=== PATIENT | male | born 1990 | race Caucasian/White ===

== ENCOUNTER 2022-07-25 13:45 | Outpatient (CLI) | payer OTHER ==
--- NOTE | 2022-07-26 09:17 | MRI Report ---
PROCEDURE: Ankle LT W/O INDICATIONS: PAIN IN LEFT ANKLE AND KNEE TECHNIQUE: Noncontrast Magnetic Resonance Imaging (MRI) of the ankle/hindfoot was performed utilizing the follow ing sequences: sagittal T1 spin echo, sagittal STIR, axial PD fast spin echo, axial T2 fast spin echo with fat saturation, coronal T2 spin echo with fat saturation, and coronal PD fast spin echo with fa t saturation. COMPARISON: None. FINDINGS: Image quality: Excellent. Bones and joints: No acute trabecular bone injury or fracture. No hindfoot coalition. No osteochondral defect is seen a t the talar dome. Mild degenerative changes of the mortise joint including inferior osteophytes that could contribute to anterior osseous impingement. Mild dorsal spurring at the talonavicular joint. Medial structures: The deltoid ligament and the spring ligament are intact. The posterior tibialis, flexor digitorum floyd jacob, and flexor hallucis longus tendons are intact. The posterior tibial neurovascular bundle appears normal within the tarsal tunnel, without extrinsic mass effect. Lateral structures: The anterior and posterior distal tibiofibular ligaments are intact. The anterior talofibular ligamen t is not well visualized and is likely completely torn. Thickening of the calcaneofibular ligament is most likely secondary to a remote prior moderate grade sprain. The posterior talofibular ligament re jing intact. The peroneus longus and peroneus brevis tendons demonstrate mild tenosynovitis. The sin us tarsi demonstrates normal fatty signal. Anterior structures: The tibialis anterior, extensor hallucis longus, and extensor digitorum longus tendons appear intact. Posterior and plantar structures: The Achilles tendon is intact. The medial and lateral bands of the plantar fascia are within normal l imits. No disproportionate atrophy of the abductor digiti minimi muscle. IMPRESSION: 1.Chronic complete tearing of the anterior talofibular ligament. Remote prior grade 2 sprain of the c alcaneofibular ligament. 2.Mild peroneus brevis and longus tenosynovitis. 3.Mild degenerative changes at the mortise joint with anterior osteophyte formation that could contri bute to anterior osseous impingement. Reviewed by: Aden Boswell MD on 07/26/2022 9:15 AM PDT Approved by: Aden Boswell MD on 07/26/2022 9:15 AM PDT Station ID: [id number]
--- NOTE | 2022-07-26 15:22 | MRI Report ---
PROCEDURE: Knee LT W/O INDICATIONS: PAIN IN LEFT KNEE TECHNIQUE: Noncontrast sagittal PD fast spin echo and T2 fast spin echo with fat saturation, sagittal 3-D gradie nt sequence with fat saturation; coronal T1 spin echo and PD fast spin echo with fat saturation, and axial PD fast spin echo with fat saturation through the knee. COMPARISON: None. FINDINGS: Image quality: Excellent. Menisci: The medial and lateral menisci demonstrate normal morphology and internal signal. The meni scal root ligaments appear intact. Cruciate ligaments: The anterior and posterior cruciate ligaments appear intact. Medial structures: The medial collateral ligament appears intact. The semimembranosus tendon insert ions and meniscocapsular junction appear intact. Visualized portions of the pes anserinus tendons ap pear normal. No abnormal bursal fluid. Lateral structures: The lateral collateral ligament, long and short heads of the biceps femoris tend on appear intact. The popliteus tendon appears normal. Iliotibial band appears normal. Anterior structures: The quadriceps tendon is intact. Mild thickening and hyperintense signal distal ly in quadriceps tendon at the patellar insertion, consistent with mild tendinitis. Patellar tendon is wavy and kinked distally. There is edema in patella tendon insertion to the tibial tubercle. Patellar alignment is normal. No femoral trochlear dysplasia or ventral trochlear promine nce. There is edema in the superior last aspect of the infrapatellar fat pad. Bones and cartilage: There is an old patellar fracture or bipartite patella. There is fragmentation of tibial tubercle. Edema is seen in distal patellar tendon at the tibial insertion. The findings ar e compatible with [place]-Schlatter disease. There is chondromalacia patella with cartilage thinning and fibrillation in the inferior aspect of th e lateral facet of patella. Joint space: There is trace knee joint effusion. No Padgett's cyst. Normal appearing synovial plicae are incidentally noted. IMPRESSION: 1. 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 2. Old nondisplaced patellar fracture versus bipartite patella. 3. Edema in the superior last aspect of the infrapatellar fat pad suggesting infrapatellar fat imping ement. 4. 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 5. Low-grade quadriceps tendinitis. Reviewed by: Tanya Ortega MD on 07/26/2022 3:21 PM PDT Approved by: Tanya Ortega MD on 07/26/2022 3:21 PM PDT Station ID: [id number]
== END 2022-07-25 13:46 | disposition home or self-care (01) ==
LOC: DI 13:45
DX: M92.522 Juvenile osteochondrosis of tibia tubercle, left leg (principal); R60.0 Localized edema; M22.42 Chondromalacia patellae, left knee; M76.892 Other specified enthesopathies of left lower limb, excluding foot; S93.492A Sprain of other ligament of left ankle, initial encounter; Z87.828 Personal history of other (healed) physical injury and trauma; M65.9 Synovitis and tenosynovitis, unspecified; M19.072 Primary osteoarthritis, left ankle and foot

== ENCOUNTER 2024-06-28 21:20 | Emergency (ER) | payer OTHER ==
[2024-06-28 21:38] LABS: BASOPHILS # (AUTO) 0.1 10^3/uL (0.0-0.1); BASOPHILS % (AUTO) 0.8 %; EOSINOPHILS # (AUTO) 0.2 10^3/uL (0.0-0.7); HCT - HEMATOCRIT 44.6 % (42.0-52.0); HGB - HEMOGLOBIN 15.4 g/dL (14.0-18.0); LYMPHOCYTES # (AUTO) 2.9 10^3/uL (1.5-3.5); LYMPHOCYTES % (AUTO) 39.5 %; MEAN CORPUSCULAR HEMOGLOBIN 32.2 pg (27.0-31.0); MEAN CORPUSCULAR HGB CONC 34.5 g/dL (32.0-36.0); MEAN CORPUSCULAR VOLUME 93.3 fL (80.0-94.0); MEAN PLATELET VOLUME 10.2 fL (7.4-11.4); MONOCYTES # (AUTO) 0.6 10^3/uL (0.0-1.0); MONOCYTES % (AUTO) 8.6 %; NEUTROPHILS # (AUTO) 3.5 10^3/uL (1.5-6.6); PLT - PLATELET COUNT 229 10^3/uL (130-450); RED BLOOD COUNT 4.78 10^6/uL (4.70-6.10); RED CELL DISTRIBUTION WIDTH 12.2 % (12.0-15.0); WHITE BLOOD COUNT 7.3 x10^3/uL (4.8-10.8)
[2024-06-28 21:39] LABS: BILIRUBIN,URINE NEGATIVE (NEGATIVE); GLUCOSE, URINE (UA) NEGATIVE (NEGATIVE); KETONES,URINE (UA) TRACE mg/dL (NEGATIVE); LEUKOCYTE ESTERASE, URINE NEGATIVE (NEGATIVE); NITRITE,URINE NEGATIVE (NEGATIVE); OCCULT BLOOD,URINE NEGATIVE (NEGATIVE); PH,URINE 6.5 PH (5.0-7.5); PROTEIN,URINE NEGATIVE (NEGATIVE); UROBILINOGEN,URINE 0.2 (NORMAL) E.U./dL (NORMAL)
[2024-06-28 21:41] LABS: CLARITY,URINE CLEAR (CLEAR)
[2024-06-28 21:51] LABS: ALBUMIN 4.3 g/dL (3.2-5.5); ALBUMIN/GLOBULIN RATIO 1.6 (1.0-2.2); BILIRUBIN,TOTAL 0.4 mg/dL (0.2-1.0); CALCIUM 9.3 mg/dL (8.5-10.3); CREATININE 0.9 mg/dL (0.6-1.3)
--- NOTE | 2024-06-28 22:12 | ED Physician Documentation ---
PD HPI ABD PAIN - Stated complaint Stated Complaint: R SIDE ABD PX - Chief complaint Chief Complaint: Abd Pain - History obtained from History obtained from: Patient - Additional information Additional information: HPI from patient. Patient complains of sudden onset of right upper quadrant and epigastric pain that radiates around the right flank to his back. Denies nausea, vomiting. Onset was while seated in car. Pain waxes and wanes without any apparent exacerbating or ameliorating factors. Denies history of similar symptoms. No past abdominal surgical history. Review of Systems Constitutional: reports: Reviewed and negative Cardiac: reports: Reviewed and negative Respiratory: reports: Reviewed and negative GI: reports: Abdominal Pain, Nausea, Vomiting. denies: Abdominal Swelling, Constipation, Diarrhea : denies: Dysuria, Frequency, Hematuria PD PAST MEDICAL HISTORY - Past Medical History Past Medical History: No Cardiovascular: None Respiratory: None Neuro: None Endocrine/Autoimmune: None GI: None : None HEENT: None Psych: None Musculoskeletal: None Derm: None - Past Surgical History Past Surgical History: No - Present Medications Home Medications: Ambulatory Orders Medication Instructions Recorded Confirmed HYDROcod/ACETAM 5/325 [[place] 5/325] 1 - 2 tablet PO Q6H PRN #14 tablet 06/28/24 Ondansetron Odt [Zofran Odt] 4 mg TL Q6H PRN #10 tablet 06/28/24 - Allergies Allergies/Adverse Reactions: Allergies Allergy/AdvReac Type Severity Reaction Status Date / Time No Known Drug Allergies Allergy Verified 06/28/24 21:22 - Social History Does the pt smoke?: No Smoking Status: Never smoker Does the pt drink ETOH?: No Does the pt have substance abuse?: No - Immunizations Immunizations are current?: Yes - POLST Patient has POLST: No PD ED PE NORMAL - Vitals Vital signs reviewed: Yes - General General: Alert and oriented X 3, Well developed/nourished, Other (appears to be in moderate painful distress ) - HEENT HEENT: Moist mucous membranes - Cardiac Cardiac: RRR, No murmur - Respiratory Respiratory: No respiratory distress, Clear bilaterally - Abdomen Abdomen: Normal bowel sounds, Soft, Non tender, Non distended - Back Back: No CVA TTP - Derm Derm: Normal color, Warm and dry, No rash Results - Vitals Vitals: Oxygen O2 Source Room air - Labs Labs: Laboratory Tests 06/28/24 06/28/24 06/28/24 21:28 21:33 21:33 WBC 7.3 RBC 4.78 Hgb 15.4 Hct 44.6 MCV 93.3 MCH 32.2 H MCHC 34.5 RDW 12.2 Plt Count 229 MPV 10.2 Neut # (Auto) 3.5 Lymph # (Auto) 2.9 Williamson # (Auto) 0.6 Eos # (Auto) 0.2 Baso # (Auto) 0.1 Absolute Nucleated RBC 0.00 Nucleated RBC % 0.0 Sodium 139 Potassium 4.0 Chloride 105 Carbon Dioxide 29 Anion Gap 5.0 L BUN 17 Creatinine 0.9 Estimated GFR (MDRD) 97 Glucose 65 L Calcium 9.3 Total Bilirubin 0.4 AST 19 ALT 22 Alkaline Phosphatase 34 L Total Protein 7.0 Albumin 4.3 Globulin 2.7 Albumin/Globulin Ratio 1.6 Lipase 42 Urine Color YELLOW Urine Clarity CLEAR Urine pH 6.5 Ur Specific [place] 1.025 Urine Protein NEGATIVE Urine Glucose (UA) NEGATIVE Urine Ketones TRACE Urine Occult Blood NEGATIVE Urine Nitrite NEGATIVE Urine Bilirubin NEGATIVE Urine Urobilinogen 0.2 (NORMAL) Ur Leukocyte Esterase NEGATIVE Ur Microscopic Review NOT INDICATED Urine Culture Comments NOT INDICATED PD Medical Decision Making - ED course Complexity details: reviewed results, re-evaluated patient, considered differential, d/w patient ED course: No concerning or diagnostic findings on blood test, urinalysis. The CBC is normal (with insignificant exception of elevated MCH). Normal LFTs, lipase. US tech is not on duty at this time. I do not find evidence of gallstones on my bedside US although I also am not confidently visualizing the gallbladder on this exam. He is given 1 mg IV Dilaudid along with 30 mg IV Toradol, and he reports good relief of symptoms with these interventions. Results discussed with patient, return precautions are reviewed. Cause of symptoms not apparent this time. Given his description and of symptoms and location (right upper quadrant with radiation around the right flank to right paralumbar region), biliary colic remains strongly suspect and I advised him to seek follow-up with his primary care provider as soon as can be arranged for reevaluation. Should the symptoms persist or recur, he would likely benefit from outpatient right upper quadrant ultrasound. Prescriptions for Vicodin and ondansetron are electronically submitted to patient's pharmacy of choice. Departure - Departure Disposition: 01 Home, Self Care Clinical Impression: Abdominal pain Qualifiers: Abdominal location: right upper quadrant Qualified Code(s): R10.11 - Right upper quadrant pain Condition: Good Instructions: ED Abdominal Pain Unkn Cause Male Follow-Up: [facility] Miltonaz[facility]ov[facility] [Provider Group] Prescriptions: HYDROcod/ACETAM 5/325 [[place] 5/325] 1 - 2 tablet PO Q6H PRN #14 tablet PRN Reason: Pain Ondansetron Odt [Zofran Odt] 4 mg TL Q6H PRN #10 tablet PRN Reason: Nausea / Vomiting Comments: There were no concerning nor diagnostic findings on tonight's blood tests nor on the urinalysis. The cause of your symptoms remains unclear at this time. As we discussed, the location of your pain and your description of symptoms is consistent with biliary colic (pain due to gallstones). At this time, the cath laboratory technician is not on duty, but since your blood work is unremarkable and your symptoms are not severe, you can follow-up with your primary care provider (call in the morning to arrange for the next available appointment) to discuss further testing such as an outpatient right upper quadrant abdominal ultrasound. Of course, you can return to the emergency department at anytime your symptoms worsen, or if you develop new/concerning signs/symptoms (such as fever, intractable vomiting, blood in your vomit and/or stool). I have electronically submitted prescriptions for ondansetron (antinausea medica tion) and Vicodin (narcotic/opiate pain medication) to the [facility] pharmacy in [place]. I am prescribing a short course of narcotic pain medication for you. These are potentially dangerous and addictive medications that should be used carefully. These medications may constipate you. Take an cjxh-ewe-ttibdir stool softener (docusate) twice daily with plenty of water while taking these medications. If you go 24 hours without a bowel movement, take kckq-qod-cjonilx miralax, per package instructions. Do not drink or drive while taking these medications. If you received narcotic or sedating medications while in the emergency department, do not drive for 24 hours. Store this medication in a safe, secure place and out of reach of children. It is a violation of federal law to give or sell this medication to another person or to use in a manner other than prescribed. The ED will not refill narcotic prescriptions, including prescriptions lost or stolen. To dispose of unwanted medications: 1. [facility]'s Department [facility] at [address] in [place] has a medication drop box. They accept prescription medications (in pill form) Saturday through Saturday 9:00 a.m. to 5:00 p.m. 2. The [facility] accepts prescription medications (in pill form only) for disposal year round. Call for more information. 3. Contact the [facility] for the next [facility] sponsored prescription drug collection event. , [phone], or [phone]; Discharge Date/Time: 06/28/24 23:42
[2024-06-28] MEDS: HYDROmorphone 1 MG/ML CARPUJECT IVP STA (23:18)
[2024-06-28] MEDS: KETOROLAC 30 MG/ML VIAL IVP STA (23:19)
[2024-06-28 23:26] VITALS: BP 132/79
[2024-06-28 23:36] VITALS: O2SAT 100
== END 2024-06-28 23:42 | disposition home or self-care (01) ==
LOC: ED 21:20
DX: R10.11 Right upper quadrant pain (principal)
CPT/HCPCS: 36415; 80053; 81003; 83690; 85025; 96374; 96375; 99283; 99284; J1170; 81001; 87086